=== PATIENT | male | born 1980 | race African-American/Black ===

== ENCOUNTER 2023-06-22 19:46 | Emergency (ER) | payer OTHER ==
[~2023-06-22] VITALS: Ht 182.9 cm; Wt 83.0 kg
[2023-06-22 20:46] LABS: BASO% 0.3 % (0-3); HEMATOCRIT 43.6 % (39.0-50.0); HEMOGLOBIN 14.7 g/dl (14.0-18.0); IMMATURE GRANULOCYTES 0.1 % (0.0-5.0); LYMPH% 38.3 % (15-41); MEAN CELL VOLUME 94.6 fL CALC (80.0-100.0); MEAN CORPUSCULAR HGB 31.9 pG CALC (26.0-32.0); MEAN CORPUSCULAR HGB CONC 33.7 g/dL CAL (32.0-36.0); MONO% 6.3 % (2-13); NEUT# 3.89 thou/uL (1.82-7.42); RED BLOOD COUNT 4.61 mill/uL (4.70-6.10); RED CELL DISTRI WIDTH 11.1 % (11.5-15.5)
[2023-06-22 20:54] LABS: ALBUMIN 4.5 g/dL (3.2-5.0); ALKALINE PHOSPHATASE 74 u/l (38-126); ANION GAP 17 (6-22 (CALC)); BILIRUBIN, TOTAL 0.7 mg/dL (0.2-1.3); BUN 12 mg/dL (9-20); BUN/CREATININE RATIO 14 (12-20 (CALC)); CARBON DIOXIDE 23 mmol/l (22-30); CHLORIDE 103 mmol/l (95-108); CREATININE 0.9 mg/dL (0.7-1.3); ETHYL ALCOHOL 0 mg/dl (0-30); GFR FOR AFR.AMER. > 60 ML/MIN (>=60 (CALC)); GFR OTHER RACES > 60 ML/MIN (>=60 (CALC)); POTASSIUM 3.8 mmol/l (3.5-5.1); SGOT/AST 39 u/l (17-59); SODIUM 138 mmol/l (137-146); TOTAL PROTEIN 7.6 g/dL (6.3-8.2)
[2023-06-23 00:15] VITALS: BP 119/87
== END 2023-06-23 00:28 | DRG 313 ==
LOC: ED 19:46
PROVIDERS: Family Medicine
DX: R07.89 Other chest pain (principal); F19.10 Other psychoactive substance abuse, uncomplicated